=== PATIENT | male | born 1955 | race African-American/Black ===

== ENCOUNTER 2017-02-28 08:03 | Emergency (ER) | payer BC, OTHER ==
[~2017-02-28] VITALS: Ht 182.9 cm; Wt 95.1 kg
[2017-02-28 08:08] VITALS: TEMP 36.5; Ht 182.9 cm; Wt 95.1 kg
[2017-02-28] MEDS ORDERED: PROPARACAINE HCL 0.5% OP SOLN 15 ML BTL ONE (08:15)
[2017-02-28] MEDS ORDERED: CIPROFLOXACIN HCL 0.3% OP SOLN 2.5 ML BTL OPR ONE (09:45)
[2017-02-28] MEDS ORDERED: DIPHTHERIA/TETANUS/PERTUSSIS 0.5 ML SYR/VIAL IM. ONE (09:45)
[2017-02-28] MEDS ORDERED: HYDR-5688 PO (10:36)
[2017-02-28] MEDS ORDERED: CIPR0.3S OPR (10:36)
[2017-02-28 10:37] VITALS: BP 140/106; PULSE 70; O2SAT 96
--- NOTE | 2017-02-28 10:40 | EMERGENCY ROOM VISIT NOTE ---
ED Visit Note First contact with patient: 08:18 CHIEF COMPLAINT: Eye pain HISTORY OF PRESENT ILLNESS: This 61-year-old male patient presents to the emergency department complaining of pain in the right eye that started yesterday after he felt something fly into the eye. The patient states this happened at work, and he flushed the eye copiously immediately after the injury. He has been using ibuprofen and a red eye eyedrops with minimal improvement. There has been a constant moderate pain and irritation, redness and tearing in the eye. There is a mild blurring of vision at times and light bothers the eye. The vision has not been decreased over all. The patient does not wear contacts. The patient rates the pain as aching, burning and 7/10. The patient has not had previous injuries to this eye. Tetanus shot is not up to date. REVIEW OF SYSTEMS: A 6 system review of systems was completed with positives and pertinent negatives listed in the HPI. ALLERGIES: None MEDICATIONS: See chart PMH: See chart SOCIAL HISTORY: See chart PHYSICAL EXAM: Vital Signs: Reviewed Nurse's notes, vital signs stable. Visual acuity within normal limits. GENERAL: This is a pleasant gentleman, in no acute distress, but who is uncomfortable from the eye problem. Well-developed well-nourished. EYES: The pupils are equal round and reactive to light and accommodation. EOMs are full and without tenderness. There is discharge of clear tears from the right eye which is injected. There is no foreign body visible under the eyelid even after lid eversion. Funduscopic exam reveals no hemorrhages, papilledema, or other abnormalities. There is a small, round metal foreign body seen embedded in the cornea overlying the iris and adjacent to the pupil at the 10 o'clock position noted on slit lamp exam. The cornea was clear and no hyphema was seen. Fluorescein uptake was observed at the 6 o' clock position with ultraviolet light significant for a corneal abrasion. EMERGENCY DEPARTMENT COURSE: I examined the patient. Proparacaine 2 drops were placed in the patient's right eye. A slit lamp exam was performed as above. An 18-gauge needle was gently scraped away the piece of metal from the cornea without complication. He rest ring was noted, daniel drill was used to remove the rust ring with good success and patient tolerated well. The patient's tetanus was updated. Patient was given ciprofloxacin ophthalmic drops for the right eye, as well as referral information for an eye doctor for follow-up. He was also provided with a prescription for [place] pain medication. He verbalized understanding of all discharge instructions and return precautions. He was discharged home in good condition. Current/Historical Medications Scheduled Ciprofloxacin Hcl (Ophth) (Ciloxan Oph), 1 DROPS OPR QID Scheduled PRN Hydrocodone/Acetaminophen 5MG/325MG ([place] 5MG/325MG), 1-2 TABLET PO Q6H PRN for Pain Allergies Coded Allergies: No Known Allergies (Unverified , 02/28/17) Vital Signs Date Time Temp Pulse Resp B/P (MAP) Pulse Ox O2 Delivery O2 Flow Rate FiO2 02/28/17 10:37 70 20 140/106 96 Room Air 02/28/17 08:08 36.5 71 18 152/99 97 Room Air Medications Administered Medications (Trade) Dose Ordered Sig/Keila Route Start Time Stop Time Status Last Admin Dose Admin Proparacaine HCl (Alcaine 0.5% Oph Soln) 225 drops STK-MED ONCE .ROUTE 02/28/17 08:15 02/28/17 08:16 DC 02/28/17 08:15 2 DROPS Diphtheria/ Pertussis/Tetanus Vacc (Adacel Inj) 0.5 ml ONCE ONCE IM. 02/28/17 09:45 02/28/17 09:46 DC 02/28/17 09:45 0.5 ML Ciprofloxacin HCl (Ciprofloxacin 0.3% Op Soln) 2 drops NOW ONCE OPR 02/28/17 09:45 02/28/17 09:46 DC 02/28/17 09:45 2 DROPS Departure Information Impression Primary Impression: Foreign body of right eye Additional Impression: Right corneal abrasion Dispostion Home / Self-Care Condition GOOD Prescriptions Hydrocodone/Acetaminophen 5MG/325MG ([place] 5MG/325MG) Tab 1-2 TABLET PO Q6H Y for Pain for 3 Days, #24 TAB For Initial Treatment Prov: Lanny Stack CRNP 02/28/17 Ciprofloxacin Hcl (Ophth) (CILOXAN OPH) 0.3 % Yenny 1 DROPS OPR QID for 7 Days, #10 ML Prov: Lanny Stack CRNP 02/28/17 Referrals No Doctor, Assigned (PCP) Danyel Waite D.O. Patient Instructions ED Eye Injury Corneal Abrasion, ED Foreign Body Cornea, My [facility] [address] Additional Instructions You have been treated in the Emergency Department today for your Corneal Abrasion. You have been prescribed [place] to be used for pain control. This is a narcotic medication. You cannot drive or consume alcohol while on this medicine. This medicine should only be used for pain that cannot be controlled with over-the- counter pain medicines. You have been prescribed Ciloxan eye drops. This is an antibiotic which will help to prevent an infection from developing in your affected eye. You should use 2 drops in the affected eye every 2 hours while awake for the first 2 days, then every 4 hours for the remaining 5 days. This is a total of a 7-day course for these antibiotic eye drops. For pain control, you can use the following [id number] medicines (if >12 yo): - Regular strength (325mg/tab) Tylenol (acetaminophen) 2 tabs every 6 hours as needed. Do not exceed 8 tablets in a 24 hour period. Avoid taking more than 3 grams (3000 mg) of Tylenol per day. This includes any other sources of acetaminophen you may take on a regular basis. - Regular strength (200 mg/tab) Advil (ibuprofen) 1-2 tabs every 4-6 hours as needed. Do not exceed a dose of 3200 mg per day. You should relax in a quiet, dark place for the rest of the day. You should wear sunglasses while outside for the next few days until your eyes are not as sensitive to the light. You should schedule a follow-up appointment in 2-3 days with your Primary Care Provider or established Eye Doctor ([employer]) for further evaluation and treatment of your Corneal Abrasion. Call to make an appointment. Return to the Emergency Department if your current symptoms worsen despite treatment course outlined above, or if you develop any of the following symptoms : intractable pain, visual disturbances, loss of vision, increased redness, swelling, drainage, or if you develop a fever. Problem Qualifiers Primary Impression: Foreign body of right eye Encounter type: initial encounter Qualified Codes: T15.91XA - Foreign body on external eye, part unspecified, right eye, initial encounter Additional Impression: Right corneal abrasion Encounter type: initial encounter Qualified Codes: S05.01XA - Injury of conjunctiva and corneal abrasion without foreign body, right eye, initial encounter
== END 2017-02-28 10:51 | disposition home or self-care (01) ==
LOC: C.EDB 08:05 → C.EDA 10:51
DX: T15.91XA Foreign body on external eye, part unspecified, right eye, initial encounter (principal); S05.01XA Injury of conjunctiva and corneal abrasion without foreign body, right eye, initial encounter; X58.XXXA Exposure to other specified factors, initial encounter; Y99.0 Civilian activity done for income or pay; Z23 Encounter for immunization